=== PATIENT | female | born 1995 | race Caucasian/White ===

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

== ENCOUNTER 2017-03-06 09:02 | Emergency (ER) | payer OTHER ==
[~2017-03-06] VITALS: Ht 157.5 cm; Wt 49.9 kg
[~2017-03-06 09:02] MED LIST changes: -CATHETER FLUSH 10 ML SYR IV PRN; -IOHEXOL 350 MG/ML 100 ML (OMNIPAQUE 350) VIAL IV ONE; -NS 100 ML (IVPB) BAG IV ONE
[2017-03-06] MEDS ORDERED: LACTATED RINGERS 1,000 ML IV ONE (09:26)
[2017-03-06] MEDS ORDERED: ONDANSETRON 4 MG/2 ML (SDV) Z0FRAN IVP ONE (09:30)
--- NOTE | 2017-03-06 09:34 | ED Back Pain ---
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 Source of Information: Patient History of Present Illness Time Seen by Provider: 09:18 Initial Comments C/O LEFT FLANK PAIN SINCE 0800 THIS AM NO RADIATION OF PAIN NOTHING WORSENS OR IMPROVES PAIN PAIN IS CONSTANT BUT WAXES AND WANES IN INTENSITY C/O NAUSEA AND DRY HEAVES DUE TO PAIN NO FEVER NO URINARY SYMPTOMS--VOIDED THIS AM WITHOUT DIFFICULTY NO INJURY TO BACK NO HISTORY OF SIMILAR TOOK TYLENOL JUST PRIOR TO ARRIVAL--"NO RELIEF" PT STATES SHE HAS HISTORY OF FREQUENT UTI'S, AND STATES KIDNEY STONES WERE NOTED ON CT SCAN DURING EVALUATION OF ANOTHER PROBLEM, BUT HAS NEVER PASSED ONE SEES DR. COLLADO--STATES HIS OFFICE TOLD HER TO COME HERE Other Comments PCP: DR. DELVALLE UROLOGY: DR. COLLADO Allergies and Home Medications Allergies Uncoded Allergies: CYCLINES (Allergy, Unknown, 05/23/14) Home Medications Amoxicillin 250 Mg/5 Ml Susp.recon, 1 TSP PO BID for 7 Days 250ML PER 5CC Prescribed by: ABDULKADIR ROSENBAUM on 05/27/14 1224 Dexamethasone 1 Mg/1 Ml Ashley, 2 TSP PO DAILY PRN for PAIN for 4 Days, Ref 0 Mix 4MG/2.5CC water Prescribed by: ABDULKADIR ROSENBAUM on 05/27/14 1231 Hydrocodone/Acetaminophen 473 Ml Solution, 1-2 TSP PO Q4H, #1 Prescribed by: ABDULKADIR ROSENBAUM on 05/27/14 1233 Sulfamethoxazole/Trimethoprim 1 Each Tablet, 1 TAB PO DAILY, (Reported) Tetracaine Sucker Ea, 1 EA MT UD PRN for PAIN, #15 Tetracain Suckers These suckers are custom made and require a prescription. Moisten the sucker first and then suck on it gently as far back in the mouth as possible for 2-3 days. You can repeadt it in about an hour. This will take the edge off but not completely numb the throat. Prescribed by: ABDULKADIR ROSENBAUM on 05/27/14 1224 Constitutional: no symptoms reported Respiratory: no symptoms reported Cardiovascular: no symptoms reported Gastrointestinal: see HPI, No abdominal pain, nausea, vomiting (DRY HEAVES) Genitourinary: No decreased output, No dysuria, No frequency, No hematuria, No hesitancy, No incontinence, No nocturia, No pain : No LMP: Feb 14, 2017 Control/STD Prophylaxis: BC Pills Musculoskeletal: see HPI, back pain (LEFT FLANK) Skin: no symptoms reported, No rash Psychiatric/Neurological: No Symptoms Reported Past Ejtgtsp-Xpzcvw-Vgyhob Hx Patient Social History Alcohol Use: Denies Use Recreational Drug Use: No Smoking Status: Never a Smoker Recent Foreign Travel: No Contact w/Someone Who Travel: No Recent Infectious Disease Expo: No Surgeries History of Surgeries: Yes (WHIPPLE PROCEDURE. 07/2016 AT ) Surgeries: Abdominal, Pancreatic, Tonsillectomy Respiratory History of Respiratory Disorde: No Cardiovascular History of Cardiac Disorders: No Neurological History of Neurological Disord: No Reproductive System : No Last Menstrual Period: Feb 14, 2017 Female Reproductive Disorders: Denies Genitourinary History of Genitourinary Disor: Yes (KIDNEY STONES FOUND INCIDENTALLY ON CT-- NEVER PASSED ONE) Genitourinary Disorders: Kidney Stones, UTI-Chronic Gastrointestinal History of Gastrointestinal Di: Yes (PANCREATIC TUMOR--PT STATES [facility] TOLD HER IT WAS "CANCER" BUT NEVER SEEN BY/ REFERRED TO ONCOLOGIST ) Gastrointestinal Disorders: Pancreatitis Musculoskeletal History of Musculoskeletal Dis: No Endocrine History of Endocrine Disorders: No HEENT History of HEENT Disorders: No Cancer History of Cancer: No (PT CLAIMS [facility] TOLD HER 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 DOES NOT APPEAR TO BE IN ANY DISCOMFORT AT THIS TIME) HEENT: PERRL/EOMI Cardiovascular: Regular Rate, Rhythm, No Edema, No JVD, No Murmur Respiratory: Normal Breath Sounds, No Accessory Muscle Use, No Respiratory Distress Gastrointestinal: Normal Bowel Sounds, No Organomegaly, No Pulsatile Mass, Non Tender, Soft Back: No CVA Tenderness, No Vertebral Tenderness Extremity: Normal Inspection Neurologic/Psychiatric: Alert, Oriented x3, No Motor/Sensory Deficits, Normal Mood/Affect, stock clerk II-XII Norm as Tested Skin: Normal Color, Warm/Dry, No Rash Progress/Results/Core Measures Results/Orders Lab Results Laboratory Tests Test 03/06/17 09:22 03/06/17 09:30 Range/Units White Blood Count 7.5 4.3-11.0 10^3/uL Red Blood Count 4.56 4.35-5.85 10^6/uL Hemoglobin 12.4 11.5-16.0 G/DL Hematocrit 36 35-52 % Mean Corpuscular Volume 79 L 80-99 FL Mean Corpuscular Hemoglobin 27 25-34 PG Mean Corpuscular Hemoglobin Concent 34 32-36 G/DL Red Cell Distribution Width 12.9 10.0-14.5 % Platelet Count 407 H 130-400 10^3/uL Mean Platelet Volume 9.8 7.4-10.4 FL Neutrophils (%) (Auto) 47 42-75 % Lymphocytes (%) (Auto) 46 H 12-44 % Monocytes (%) (Auto) 6 0-12 % Eosinophils (%) (Auto) 1 0-10 % Basophils (%) (Auto) 0 0-10 % Neutrophils # (Auto) 3.5 1.8-7.8 X 10^3 Lymphocytes # (Auto) 3.4 1.0-4.0 X 10^3 Monocytes # (Auto) 0.5 0.0-1.0 X 10^3 Eosinophils # (Auto) 0.1 0.0-0.3 10^3/uL Basophils # (Auto) 0.0 0.0-0.1 10^3/uL Sodium Level 140 135-145 MMOL/L Potassium Level 4.0 3.6-5.0 MMOL/L Chloride Level 109 H 98-107 MMOL/L Carbon Dioxide Level 21 21-32 MMOL/L Anion Gap 10 5-14 MMOL/L Blood Urea Nitrogen 12 7-18 MG/DL Creatinine 0.76 0.60-1.30 MG/DL Estimat Glomerular Filtration Rate > 60 BUN/Creatinine Ratio 16 Glucose Level 102 70-105 MG/DL Calcium Level 9.1 8.5-10.1 MG/DL Total Bilirubin 0.3 0.1-1.0 MG/DL Aspartate Amino Transf (AST/SGOT) 17 5-34 U/L Alanine Aminotransferase (ALT/SGPT) 15 0-55 U/L Alkaline Phosphatase 64 40-136 U/L Total Protein 6.6 6.4-8.2 GM/DL Albumin 3.9 3.2-4.5 GM/DL Amylase Level 49 25-125 U/L Lipase < 4 L 8-78 U/L Serum Test, Qualitative NEGATIVE NEGATIVE Urine Color YELLOW Urine Clarity VERY CLOUDY H Urine pH 5 5-9 Urine Specific Howard 1.025 H 1.016-1.022 Urine Protein 1+ H NEGATIVE Urine Glucose (UA) NEGATIVE NEGATIVE Urine Ketones NEGATIVE NEGATIVE Urine Nitrite NEGATIVE NEGATIVE Urine Bilirubin NEGATIVE NEGATIVE Urine Urobilinogen NORMAL NORMAL MG/DL Urine Leukocyte Esterase 1+ H NEGATIVE Urine RBC (Auto) 5+ H NEGATIVE Urine RBC 10-25 H /HPF Urine WBC RARE /HPF Urine Squamous Epithelial Cells >50 H /HPF Urine Crystals NONE /LPF Urine Bacteria MODERATE H /HPF Urine Casts NONE /LPF Urine Mucus NEGATIVE /LPF Urine Culture Indicated NO My Orders Orders - RONNIE RUIZ DO Ua Culture If Indicated (03/06/17 09:09) Ct Abd/Pelvis Wo(Kidney Stone) (03/06/17 09:26) Amylase (03/06/17 09:26) Cbc With Automated Diff (03/06/17 09:26) Comprehensive Metabolic Panel (03/06/17 09:26) Lipase (03/06/17 09:26) Abdomen/Kub 1view (03/06/17 09:26) Saline Lock/Iv-Start (03/06/17:26) Hcg,Qualitative Serum (03/06/17 09:26) Lactated Ringers (Lr 1000 Ml Iv Solution (03/06/17 09:26) Ondansetron Injection (Zofran Injectio (03/06/17 09:30) Medications Given in ED Current Medications Medications Dose Ordered Sig/Clement Route Start Time Stop Time Status Last Admin Dose Admin Lactated Ringer's 1,000 ml @ 0 mls/hr Q0M ONCE IV 03/06/17 09:26 03/06/17 09:28 DC 03/06/17 09:38 1,000 MLS/HR Ondansetron HCl 4 mg ONCE ONCE IVP 03/06/17 09:30 03/06/17 09:31 DC 12/21/17 09:38 4 MG Vital Signs/I&O Vital Sign - Last 12Hours 03/06/17 09:06 Temp 98.1 Pulse 91 Resp 18 B/P (MAP) 139/98 O2 Delivery Room Air Diagnostic Imaging Comments KUB--NO ACUTE PROCESS CT ABDOMEN/PELVIS--LIKELY 3 MM LEFT DISTAL URETERAL STONE, WITH MILD TO MODERATE LEFT HYDRONEPHROSIS PER RADIOLOGIST REPORT @ 1110 Reviewed: Reviewed by Me Departure Impression Impression: Primary Impression: Left ureteral calculus Additional Impression: UTI (urinary tract infection) Disposition: HOME, SELF-CARE Condition: Improved Departure-Patient Inst. Referrals: SHI DELVALLE DO (PCP/Family) Primary Care Physician PAM COLLADO MD Patient Instructions: Kidney Stones (DC), Urinary Tract Infection, Adult (DC) Add. Discharge Instructions: LOTS OF CLEAR LIQUIDS STRAIN ALL URINE--RETURN ANY STONES TO DR. COLLADO'S OFFICE FOLLOW UP WITH DR COLLADO NEXT WEEK FOR FURTHER CARE RETURN TO ER IF SYMPTOMS WORSEN All discharge instructions reviewed with patient and/or family. Voiced understanding. Scripts Hydrocodone/Ibuprofen (Hydrocodone-Ibuprofen 7.5-200) 1 Each Tablet 1-2 EACH PO Q4H for Pain, #20 TAB Prov: RONNIE RUIZ DO 03/06/17 Ondansetron (Zofran Odt) 4 Mg Tab.rapdis 4 MG PO Q4H for Nausea/Vomiting, #10 TAB Prov: RONNIE RUIZ DO 03/06/17 Nitrofurantoin Monohyd/M-Cryst (Macrobid 100 mg Capsule) 100 Mg Capsule 100 MG PO BID, #20 CAP Prov: RONNIE RUIZ DO 03/06/17 Tamsulosin HCl (Flomax) 0.4 Mg Cap 0.4 MG PO DAILY, #10 CAP Prov: RONNIE RUIZ DO 03/06/17 RONNIE RUIZ DO Mar 06, 2017 09:34
[2017-03-06 09:47] LABS: BASOPHILS % (AUTO) 0 % (0-10); EOSINOPHILS # (AUTO) 0.1 10^3/uL (0.0-0.3); EOSINOPHILS % (AUTO) 1 % (0-10); LYMPHOCYTES # (AUTO) 3.4 X 10^3 (1.0-4.0); LYMPHOCYTES % (AUTO) 46 % (12-44); MEAN CORPUSCULAR HEMOGLOBIN 27 PG (25-34); MEAN CORPUSCULAR HGB CONC 34 G/DL (32-36); MEAN CORPUSCULAR VOLUME 79 FL (80-99); MEAN PLATELET VOLUME 9.8 FL (7.4-10.4); MONOCYTES # (AUTO) 0.5 X 10^3 (0.0-1.0); MONOCYTES % (AUTO) 6 % (0-12); NEUTROPHILS # (AUTO) 3.5 X 10^3 (1.8-7.8); NEUTROPHILS % (AUTO) 47 % (42-75); PLATELET COUNT 407 10^3/uL (130-400); RED BLOOD COUNT 4.56 10^6/uL (4.35-5.85); RED CELL DISTRIBUTION WIDTH 12.9 % (10.0-14.5); WHITE BLOOD COUNT 7.5 10^3/uL (4.3-11.0)
[2017-03-06 09:48] LABS: BILIRUBIN,URINE NEGATIVE (NEGATIVE); KETONES,URINE NEGATIVE (NEGATIVE); LEUKOCYTE ESTERASE ,URINE 1+ (NEGATIVE); NITRITE,URINE NEGATIVE (NEGATIVE); PH,URINE 5 (5-9); PROTEIN,URINE 1+ (NEGATIVE); UROBILINOGEN,URINE NORMAL (NORMAL)
[2017-03-06 09:55] LABS: SQUAMOUS EPITHELIAL CELL,UR >50 /HPF; WBC,URINE RARE /HPF
[2017-03-06 10:02] LABS: ALANINE AMINOTRANSFERASE 15 U/L (0-55); ALBUMIN 3.9 GM/DL (3.2-4.5); AMYLASE 49 U/L (25-125); ANION GAP 10 MMOL/L (5-14); ASPARTATE AMINO TRANSFERASE 17 U/L (5-34); BILIRUBIN,TOTAL 0.3 MG/DL (0.1-1.0); BLOOD UREA NITROGEN 12 MG/DL (7-18); BUN/CREATININE RATIO 16; CALCIUM 9.1 MG/DL (8.5-10.1); CARBON DIOXIDE 21 MMOL/L (21-32); CHLORIDE 109 MMOL/L (98-107); CREATININE SERUM 0.76 MG/DL (0.60-1.30); GFR ESTIMATED > 60; GLUCOSE 102 MG/DL (70-105); LIPASE < 4 U/L (8-78); SODIUM 140 MMOL/L (135-145); TOTAL PROTEIN 6.6 GM/DL (6.4-8.2)
--- NOTE | 2017-03-06 10:27 | Diagnostic Imaging Report ---
INDICATION: Back pain, history of kidney stones. KUB obtained 0954 hours a.m. There is moderate stool throughout the colon. There is no overt obstruction or ileus. There are surgical sutures in the right upper quadrant. There are no definite calculi overlying the renal shadows. There is a left-sided pelvic calcification which may be a phlebolith or small stone. IMPRESSION: Moderate stool throughout the colon. No overt obstruction or ileus. Surgical sutures in the right upper quadrant. There is a left-sided pelvic calcifications may be phleboliths or small stone. Dictated by: Dictated on workstation # [id number]
--- NOTE | 2017-03-06 10:56 | Diagnostic Imaging Report ---
PROCEDURE: CT urinary tract, rule out kidney stone. TECHNIQUE: Multiple contiguous axial images were obtained through the abdomen and pelvis without the use of intravenous contrast. INDICATION: Abdominal pain. Vomiting. FINDINGS: The lung bases are clear. The liver is slightly prominent in size. The spleen appears unremarkable. Surgical clips around the pancreas from prior pancreatic head mass resection are noted. The adrenal glands appear unremarkable. The kidneys demonstrate hydronephrosis of mild to moderate degree on the left side and no hydronephrosis on the right side. There is a calcification in the left side of the pelvis measuring 3 mm. It is in the expected area of the distal left ureter although the distal left ureter itself is not well delineated on this exam. This is probably a distal ureteric stone. No right ureteric stone is seen. No bladder stone. The distal left ureteric stone is about 1 cm from the bladder. The uterus and adnexa appear grossly unremarkable. There is no bowel obstruction. Although the appendix is not fully delineated, it appears to project on the right side of the pelvis with no definite abnormality. The osseous structures appear grossly unremarkable. IMPRESSION: A 3 mm left pelvic stone is seen in the expected area of the distal left ureter, with mild to moderate left renal hydronephrosis suggestive of a distal left ureteric stone. Dictated by: Dictated on workstation # [id number]
--- OUTSIDE RECORDS SUMMARY | 2017-03-06 10:56 | XMS REPORT | Clinical Summary ---
Author Author [facility] Organization [facility] Address Unknown Phone Unavailable Care Team Providers Care 411 Directory Assistance Operator Name Role Phone PCP Unavailable Source Comments Some departments are not documenting in the electronic medical record. If you do not see the information that you expected, contact Release of Information in the Health Information Management department at [phone] for further assistance in locating additional records.[facility] Allergies Active Allergy Reactions Severity Noted Date Comments Unclassified Drug HIVES Medium 11/29/2016 Metacycline Tetracycline HIVES Medium 07/04/2016 Current Medications Prescription Sig. Disp. Refills Start End Date Status Date norgestimate/ethinyl Take 1 Tab by mouth at 84 Tab 3 07/27/19 Active estradiol(+) (ORTHO bedtime daily. Do not 17 TRI-CYCLEN; TRI-SPRINTEC) resume until instructed .18/.215/.25-35 mg-mcg to do so by Dr. March (28) tablet polyethylene glycol 3350 Take 1 Packet by mouth 12 Each 07/27/19 Active (MIRALAX) 17 g packet daily. 17 senna/docusate Take 2 Tabs by mouth 0 07/27/19 Active (SENOKOT-S) 8.6/50 mg twice daily. 17 tablet acetaminophen (TYLENOL) Take 2 Tabs by mouth 0 07/27/19 Active 325 mg tablet every 6 hours as needed. 17 oxyCODONE (ROXICODONE, Take 1-2 Tabs by mouth 60 Tab 0 07/27/19 Active OXY-IR) 5 mg tablet every 4 hours as needed 17 Earliest Fill Date: 07/26/16 AZITHROMYCIN PO Take by mouth. Active trimethoprim (TRIMPEX) Take 100 mg by mouth. Active 100 mg tablet pseudoephedrine Take 60 mg by mouth every Active (SUDOGEST) 60 mg tablet 4 hours as needed for Congestion. Active Problems Problem Noted Date Pancreatic mass 07/23/2016 S/P exploratory laparotomy 07/23/2016 Family History Medical History Relation Name Comments Hypertension Father Thyroid Disease Mother Relation Name Status Comments Father Alive Mother Alive Social History Tobacco Use Types Packs/Day Years Used Date Never Smoker Smokeless Tobacco: Never Used Alcohol Use Drinks/Week oz/Week Comments No 0 Standard 0.0 drinks or equivalent Sex Assigned at Date Recorded Not on file Last Filed Vital Signs Vital Sign Reading Time Taken Blood Pressure 148/84 11/29/2016 1:15 PM CDT Pulse 98 11/29/2016 1:15 PM CDT Temperature 37.1 C (98.7 F) 11/29/2016 1:15 PM CDT Respiratory Rate 18 11/29/2016 1:15 PM CDT Oxygen Saturation 99% 08/14/2016 10:28 AM CDT Inhaled Oxygen - - Concentration Weight 47.6 kg (105 lb) 11/29/2016 1:15 PM CDT Height 157.5 cm (5' 2") 11/29/2016 1:15 PM CDT Body Mass Index 19.2 11/29/2016 1:15 PM CDT Plan of Treatment Health Maintenance Due Date Last Done Comments PHYSICAL (COMPREHENSIVE) 2004 EXAM HPV VACCINES (1 of 3 - 2008 Female 3 Dose Series) PERTUSSIS VACCINE 2008 TETANUS VACCINE 2014 INFLUENZA VACCINE 10/15/2016 Implants Implanted Type Area Practice Architect Device Expiration Model / Identifier Date Serial / Lot 5 Fr Feeding Tube N/A: Bile 07/15/2020 [id number] / Implanted: Qty: 1 on 07/23/2016 by Duct ONIEL / Pop March MD [id number] Results Not on filefrom Last 3 Months
--- OUTSIDE RECORDS SUMMARY | 2017-03-06 10:56 | XMS REPORT | Continuity of Care Document ---
Author Author [employer] Organization [facility] Address Unknown Phone Unavailable Care Team Providers Care Radio Commentator Name Role Phone [employer] Unavailable Unavailable Problems Medications Allergies, Adverse Reactions, Alerts Immunizations Results Vital Signs Encounters Procedures Plan of Care Social History Assessment and Plan Family History Value Date Source Advance Directives Order Name Results Value Date Source
[2017-03-06] MEDS ORDERED: KETOROLAC 30 MG/ML VIAL IVP ONE (11:15)
[2017-03-06] MEDS ORDERED: ALFUZOSIN HCL 10 MG TAB (UROXATRAL) PO SCH (11:15)
[2017-03-06] MEDS ORDERED: HYDR-87 PO (11:16)
[2017-03-06] MEDS ORDERED: TAMS0.4C98 PO (11:16)
[2017-03-06] MEDS ORDERED: ONDA4TAB8 PO (11:16)
[2017-03-06] MEDS ORDERED: NITR-65 PO (11:16)
== END 2017-03-06 11:44 | disposition home or self-care (01) ==
LOC: EDUNIT# 09:02 → ER 09:04
DX: N20.1 Calculus of ureter (principal); N39.0 Urinary tract infection, site not specified; Z90.89 Acquired absence of other organs; Z87.442 Personal history of urinary calculi; Z87.19 Personal history of other diseases of the digestive system
CPT/HCPCS: 36415; 74000; 74176; 80053; 81000; 82150; 83690; 84703; 85025

== ENCOUNTER → 2017-03-25 | Outpatient (CLI) | payer OTHER ==
[~2017-03-25] MED LIST changes: +HYDR-87 PO; +NITR-65 PO; +ONDA4TAB8 PO; +TAMS0.4C98 PO
--- NOTE | 2017-03-25 12:31 | Diagnostic Imaging Report ---
INDICATION: Left nephrolithiasis. EXAMINATION: KUB at 12:36 p.m. FINDINGS: Bowel gas pattern is normal. There are no pathologic masses or calcifications seen. There is a suture line in the right upper quadrant from previous surgery. IMPRESSION: No acute abnormalities in the abdomen. Dictated by: Dictated on workstation # [id number]
== END ==
LOC: RAD 12:04
PROVIDERS: ATTEND Urology
DX: N20.0 Calculus of kidney (principal); N20.1 Calculus of ureter
CPT/HCPCS: 74018

== ENCOUNTER → 2017-03-31 | Outpatient (CLI) | payer OTHER ==
[~2017-03-31] MED LIST changes: +HYDR-3874 PO; +PHEN-640 PO
== END ==
LOC: PREOP 03-28 05:35
PROVIDERS: ATTEND Urology
DX: Z01.818 Encounter for other preprocedural examination (principal); N20.1 Calculus of ureter

== ENCOUNTER 2017-04-01 07:03 | Day surgery (SDC) | payer OTHER ==
[~2017-04-01] VITALS: Ht 157.5 cm; Wt 49.0 kg
[~2017-04-01 07:03] MED LIST changes: -HYDR-3874 PO; -PHEN-640 PO
--- NOTE | 2017-04-01 07:06 | Progress Note-Pre Operative ---
Pre-Operative Progress Note H&P Reviewed The H&P was reviewed, patient examined and no changes noted. Date Seen by Provider: Apr 01, 2017 Time Seen by Provider: 07:06 Date H&P Reviewed: Apr 01, 2017 Time H&P Reviewed: 07:06 Pre-Operative Diagnosis: LT URETERAL STONE PAM COLLADO MD Apr 01, 2017 7:06 am
--- NOTE | 2017-04-01 07:12 | Progress Note-Post Operative ---
Post-Operative Progess Note Surgeon (s)/[employer] (s) Surgeon PAM COLLADO MD [employer]: N/A Pre-Operative Diagnosis LT URETERAL STONE Post-Operative Diagnosis SAME Procedure & Operative Findings Date of Procedure 04/01/17 Procedure Performed/Findings LT URETEROSCOPY WITH STONE BASKET Anesthesia Type GENERAL Estimated Blood Loss Estimated blood loss (mL): N/A Specimens/Packing Specimens Removed STONE Packing: N/A PAM COLLADO MD Apr 01, 2017 7:12 am
[2017-04-01 07:20] VITALS: BP 141/99
[2017-04-01] MEDS ORDERED: cefTRIAXone 1 GM/NS 50 ML IVPB IV ONE ×2 (07:45)
--- NOTE | 2017-04-01 07:52 | Diagnostic Imaging Report ---
INDICATION: Left ureteral stone Supine image of the abdomen is obtained. Comparison is made to study of 03/25/2017. Surgical suture is again seen in the right upper quadrant of the abdomen with midline mamadou. Tiny calcification projecting over the distal left ureter has a similar appearance. No other pathologic abdominal calcification is seen. IMPRESSION: Approximately 0.3 cm calcification is seen in the expected location of distal left ureter. Otherwise, no acute abnormality or adverse change is seen. Dictated by: Dictated on workstation # [id number]
[2017-04-01] MEDS ORDERED: LACTATED RINGERS 1,000 ML IV PRN (09:14)
[2017-04-01] MEDS ORDERED: fentaNYL INJECTION 100 MCG/2 ML AMP ONE (09:51)
[2017-04-01] MEDS ORDERED: MIDAZOLAM 2 MG/2 ML (VERSED) VIAL ONE (09:51)
[2017-04-01] MEDS ORDERED: MEPERIDINE (DEMEROL) INJ 50 MG/ML IVP PRN (11:00)
[2017-04-01] MEDS ORDERED: ONDANSETRON 4 MG/2 ML (SDV) Z0FRAN IVP PRN (11:00)
--- NOTE | 2017-04-01 11:02 | Discharge Inst-Urology ---
Discharge Inst-Urology Discharge Medications New, Converted, or Re-newed RX: RX on Chart Patient Instructions/Follow Up Plan Please make appointment to been seen in office in 2 weeks. Stone for analysis post seen by patient, mother has it Increase oral fluids for 48 hours and then as needed. Diet and Activity as tolerated. If questions or concerns contact your physician Or seek help at emergency department. PAM COLLADO MD Apr 01, 2017 11:02 am
[2017-04-01] MEDS ORDERED: PHEN-640 PO (11:12)
[2017-04-01] MEDS ORDERED: HYDR-3874 PO (11:12)
[2017-04-01] MEDS ORDERED: NITR-65 PO (11:12)
[2017-04-01] MEDS: morphine INJ 10 MG/ML 1ML (SYR OR VIAL) IVP PRN ×2 (11:35→11:40)
[2017-04-01 12:00] VITALS: BP 135/85
[2017-04-01] MEDS ORDERED: PHENAZOPYRIDINE 100 MG (PYRIDIUM) TABLET ONE (12:25)
[2017-04-01 12:30] VITALS: BP 142/88
[2017-04-01] MEDS ORDERED: PHENAZOPYRIDINE 100 MG (PYRIDIUM) TABLET PO ONE (13:00)
--- NOTE | 2017-04-01 13:20 | OPERATIVE REPORT ---
DATE OF SERVICE: 04/01/2017 PREOPERATIVE DIAGNOSIS: Left distal ureteral stone. POSTOPERATIVE DIAGNOSIS: Left distal ureteral stone. OPERATIONS PERFORMED: Cystoscopy, attempted left ureteroscopy, left ureteral stone basket. SURGEON: Pedrito Collado MD ANESTHESIA: General. COMPLICATIONS: None. DESCRIPTION OF PROCEDURE: Under satisfactory general anesthesia, the patient in lithotomy position, genitalia were prepped and draped in the usual sterile fashion. Cystoscope was introduced in the bladder. Examination of the bladder was completely normal except for a sluggish left ureteral efflux. Using the foroblique lens, I dilated the left ureteral orifice intramural portion. I passed a left ureteroscope, but I could not manipulate it beyond the opening, so I removed it and inserted the cystoscope, passed a 3-[place] Pimentel basket beyond the stone, easily grasped the stone and extracted it with no problem. I went ahead and passed a ureteral catheter to confirm the integrity of the ureter and passed easily to the proximal ureter. I elected not to leave a stent to avoid adverse effects of the stent. I emptied the bladder, removed the cystoscope. The patient tolerated the procedure and anesthesia well, was sent to recovery room in stable condition. PLAN: We will send the stone for analysis. We will see her back at the office in 2 weeks. We will do stone workup. Job ID: [id number] DocumentID: [id number] Dictated Date: 04/01/2017 11:06:26 Glove Cuffer Date: 04/01/2017 13:19:12 Dictated By: PEDRITO COLLADO MD
== END 2017-04-01 12:45 | disposition home or self-care (01) ==
LOC: SDC 07:03
PROVIDERS: ATTEND Urology
DX: N20.1 Calculus of ureter (principal)
CPT/HCPCS: 74018; 84703; 87081

== ENCOUNTER → 2017-06-30 | Outpatient (CLI) | payer BC ==
[~2017-06-30] MED LIST changes: +HYDR-3870 PO; +PHEN-640 PO
== END ==
LOC: LAB 17:03
PROVIDERS: ATTEND Urology
DX: N20.1 Calculus of ureter (principal); Z87.442 Personal history of urinary calculi
CPT/HCPCS: 36415; 82140; 82340; 82507; 82570; 83735; 83945; 83986; 84105; 84133; 84300; 84392; 84560

== ENCOUNTER → 2017-10-02 | Outpatient (CLI) | payer BC | LOC: CARD 10:32 | PROVIDERS: ATTEND Family Medicine | DX: I10 Essential (primary) hypertension (principal) | CPT/HCPCS: 93306 ==

== ENCOUNTER → 2018-03-04 | Outpatient (CLI) | payer BC ==
--- NOTE | 2018-03-04 13:38 | Diagnostic Imaging Report ---
INDICATION: History of kidney stones. Followup. History of UTIs. COMPARISON: 04/01/2017. FINDINGS: Single supine radiographic view of the abdomen was obtained. Surgical suture material is noted within the right upper abdominal quadrant. No other unexpected extraosseous calcifications or radiopaque foreign bodies are seen. Small bowel loops are nondistended. There is no large collection of free intraperitoneal air. Bony structures show no gross acute abnormalities. IMPRESSION: 1. Nonobstructive small bowel gas pattern. 2. No unexpected extraosseous calcifications or radiopaque foreign bodies. Dictated by: Dictated on workstation # [id number]
== END ==
LOC: RAD 13:00
PROVIDERS: ATTEND Urology
DX: Z09 Encounter for follow-up examination after completed treatment for conditions other than malignant neoplasm (principal); Z87.442 Personal history of urinary calculi
CPT/HCPCS: 74018

== ENCOUNTER 2020-11-02 19:36 | Emergency (ER) | payer BC ==
[~2020-11-02] VITALS: Ht 157.5 cm; Wt 65.3 kg
[~2020-11-02 19:36] MED LIST changes: -TAMS0.4C98 PO; +TMSL.4C PO
[2020-11-02] MEDS ORDERED: ESCI-2 (20:11)
[2020-11-02] MEDS ORDERED: TR1O15 (20:11)
[2020-11-02] MEDS ORDERED: METO50TA7 (20:11)
[2020-11-02] MEDS ORDERED: LANS30CA (20:11)
[2020-11-02] MEDS ORDERED: ONDANSETRON 4 MG/2 ML (SDV) Z0FRAN IVP ONE (20:30)
[2020-11-02] MEDS ORDERED: LACTATED RINGERS 1,000 ML IV ONE (20:30)
[2020-11-02] MEDS ORDERED: PANTOPRAZOLE 40 MG (PROTONIX) VIAL IV ONE (20:30)
[2020-11-02 20:32] LABS: BILIRUBIN,URINE NEGATIVE (NEGATIVE); CLARITY,URINE CLEAR; COLOR,URINE YELLOW; GLUCOSE, URINE (UA) NEGATIVE (NEGATIVE); KETONES,URINE NEGATIVE (NEGATIVE); LEUKOCYTE ESTERASE ,URINE NEGATIVE (NEGATIVE); NITRITE,URINE NEGATIVE (NEGATIVE); PROTEIN,URINE NEGATIVE (NEGATIVE)
[2020-11-02 20:34] LABS: BASOPHILS % (AUTO) 0 % (0-10); EOSINOPHILS # (AUTO) 0.3 10^3/uL (0.0-0.3); EOSINOPHILS % (AUTO) 2 % (0-10); HEMATOCRIT 39 % (35-52); HEMOGLOBIN 12.6 g/dL (11.5-16.0); LYMPHOCYTES # (AUTO) 3.5 10^3/uL (1.0-4.0); LYMPHOCYTES % (AUTO) 33 % (12-44); MEAN CORPUSCULAR HEMOGLOBIN 27 pg (25-34); MEAN CORPUSCULAR HGB CONC 33 g/dL (32-36); MEAN CORPUSCULAR VOLUME 82 fL (80-99); MEAN PLATELET VOLUME 9.5 fL (9.0-12.2); MONOCYTES # (AUTO) 0.5 10^3/uL (0.0-1.0); MONOCYTES % (AUTO) 5 % (0-12); NEUTROPHILS # (AUTO) 6.3 10^3/uL (1.8-7.8); NEUTROPHILS % (AUTO) 59 % (42-75); PLATELET COUNT 415 10^3/uL (130-400); WHITE BLOOD COUNT 10.6 10^3/uL (4.3-11.0)
--- NOTE | 2020-11-02 20:36 | ED Abdominal Pain ---
General Chief Complaint: Abdominal/GI Problems Stated Complaint: ABDOMINAL PAIN Nursing Triage Note: c/o intermittant upper abdominal pain x1 day. 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 Source of Information: Patient History of Present Illness Date Seen by Provider: Nov 02, 2020 Time Seen by Provider: 20:10 Initial Comments PT ARRIVES VIA POV FROM HOME C/O UPPER ABDOMINAL PAIN SINCE YESTERDAY STATES IT WENT AWAY YESTERDAY, AND SHE WAS FINE ALL DAY TODAY, AND ATE BREAKFAST AND LUNCH WITHOUT PROBLEMS ATE DINNER/SUSHI AROUND 1830 AND PAIN RETURNED ATE BROCCOLI/RICE/CHEESE YESTERDAY PT VOMITED X 5 LAST NIGHT, NO VOMITING TODAY, BUT NAUSEA HAS RETURNED WHEN PAIN RETURNED. TOOK ZOFRAN LAST NIGHT, BUT NONE TODAY HAS NOT TAKEN ANYTHING FOR PAIN HAD BM X 1--DIARRHEA/NORMAL FOR PT. NO FEVER NO URINARY SYMPTOMS NO COUGH OR URI SYMPTOMS PT HAS HAD PANCREATIC CANCER, AND HAD WHIPPLE PROCEDURE DONE IN 2016 AT HAD CHOLECYSTECTOMY, BILE DUCT REMOVED, PARTIAL PANCREATECTOMY, PARTIAL GASTRECTOMY AND SMALL BOWEL RESECTION DONE NO CHEMO OR RADIATION STILL SEES GI AND ONCOLOGY AT HAS ONGOING GI ISSUES SINCE THE ABOVE, BUT DOES NOT TAKE ANY GI MEDICATIONS, AND NORMALLY DOES NOT HAVE PAIN--MOSTLY DIGESTION ISSUES/DIARRHEA HAD NORMAL EGD LAST YEAR, AND HAD COLONOSCOPY 2 YEARS AGO HAD NORMAL MRI OF ABDOMEN IN JULY HAS AN APPOINTMENT 11/07/20 FOR GENETIC COUNSELING HAD SIMILAR PAIN A COUPLE OF MONTHS AGO, CALLED HER DR, BUT NO TESTS WERE DONE, NO RX'S GIVEN CALLED HER DR AT TODAY, AND HE ORDERED LAB TODAY, BUT PT DID NOT HAVE THAT DONE TODAY. LMP: NOW--IUD IN PLACE PT HAD HER SECOND COVID-19 VACCINE 10 DAYS AGO NO KNOWN SICK CONTACTS. PCP: DR. DELVALLE UROLOGY: DR. HEAVEN SHETTY FOR GI AND ONCOLOGY Allergies and Home Medications Allergies Uncoded Allergies: CYCLINES (Allergy, Unknown, 05/23/14) Home Medications Metoclopramide HCl 10 Mg Tablet, 10 MG PO QID Prescribed by: RONNIE RUIZ on 11/02/202156 Ondansetron 8 Mg Tab.rapdis, 8 MG PO Q4H PRN for NAUSEA/VOMITING Prescribed by: RONNIE RUIZ on 11/02/202156 Pantoprazole Sodium 40 Mg Tablet., 40 MG PO DAILY Prescribed by: RONNIE RUIZ on 11/02/202156 Patient Home Medication List Home Medication List Reviewed: Yes Review of Systems Review of Systems Constitutional: no symptoms reported Respiratory: No Symptoms Reported Cardiovascular: No Symptoms Reported Gastrointestinal: See HPI, Abdominal Pain; Denies Constipated; Diarrhea (NORMAL FOR PT), Nausea, Vomiting Genitourinary: No Symptoms Reported Musculoskeletal: no symptoms reported; No back pain Skin: no symptoms reported Psychiatric/Neurological: No Symptoms Reported Endocrine: No Symptoms Reported Hematologic/Lymphatic: No Symptoms Reported Past Zekmtvt-[id number]-Byjonj Hx Patient Social History Tobacco Use?: No Use of E-Cig and/or Vaping dev: No Substance use?: No Alcohol Use?: Yes Alcohol Frequency: Once in a while Pt feels they are or have been: No Immunizations Up To Date First/Initial COVID19 Vaccinat: 10/04 Second COVID19 Vaccination Neal: 11/04 COVID19 Vaccine Knot Cutter: kim Past Medical History Surgery/Hospitalization HX: 2017--WHIPPLE PROCEDURE--WITH CHOLECYSTECTOMY, BILE DUCT REMOVED, PARTIAL GASTRECTOMY, PARTIAL PANCREATECTOMY, SMALL BOWEL RESECTION Surgeries: Yes (WHIPPLE PROCEDURE. 07/2016 AT ) Abdominal, Bowel Surgery, Gallbladder, Pancreatic, Renal, Tonsillectomy Respiratory: No Cardiac: Yes Hypertension Neurological: No Last Menstrual Period: Nov 02, 2020 Female Reproductive Disorders: Denies Genitourinary: Yes (KIDNEY STONES FOUND INCIDENTALLY ON CT--NEVER PASSED ONE) Kidney Stones, UTI-Chronic Gastrointestinal: Yes (PANCREATIC CANCER-S/P WHIPPLE PROCEDURE) Pancreatitis Musculoskeletal: No Endocrine: No HEENT: Yes (S/P TONSILLECTOMY) Tonsilitis Cancer: Yes Pancreatic Did You Recieve Any Treatments: Yes What Type of Treatment Did You: Surgical Intervention S/P WHIPPLE PROCEDURE 2016 Psychosocial: Yes Anxiety Integumentary: No Blood Disorders: No Physical Exam Vital Signs Vital Signs - First Documented 11/02/20 20:03 Temp 36.9 Pulse 86 Resp 16 B/P (MAP) 163/102 (122) Pulse Ox 99 O2 Delivery Room Air Capillary Refill : Less Than 3 Seconds Height/Weight/BMI Height: 5'2.00" Weight: 108lbs. 1.0oz. 49.310209kc; 26.00 BMI Method: General Appearance: WD/WN, no apparent distress, other (WALKS UPRIGHT AND MOVES WITHOUT DIFFICULTY) HEENT: PERRL/EOMI; No scleral icterus (R), No scleral icterus (L) Neck: normal inspection Respiratory: normal breath sounds, no respiratory distress, no accessory muscle use Cardiovascular: regular rate, rhythm Gastrointestinal: normal bowel sounds, soft, no organomegaly; No guarding, No rebound; tenderness (DIFFUSE UPPER ABDOMINAL TENDERNESS, BUT MOST TENDER IN EPIGASTRIC AREA); No hernia, No mass; other (DIFFUSE FULLNESS TO UPPER ABDOMEN) Extremities: normal inspection Back: no CVA tenderness Neurologic/Psychiatric: zinc etcher II-XII nml as tested, no motor/sensory deficits, alert, normal mood/affect, oriented x 3 Skin: normal color, warm/dry; No rash Progress/Results/Core Measures Results/Orders Lab Results Laboratory Tests Test 11/02/20 20:12 11/02/20 20:20 Range/Units Urine Color YELLOW Urine Clarity CLEAR Urine pH 6.0 5-9 Urine Specific Whipple >=1.030 1.016-1.022 Urine Protein NEGATIVE NEGATIVE Urine Glucose (UA) NEGATIVE NEGATIVE Urine Ketones NEGATIVE NEGATIVE Urine Nitrite NEGATIVE NEGATIVE Urine Bilirubin NEGATIVE NEGATIVE Urine Urobilinogen 0.2 < = 1.0 MG/DL Urine Leukocyte Esterase NEGATIVE NEGATIVE Urine RBC (Auto) NEGATIVE NEGATIVE Urine RBC NONE /HPF Urine WBC 0-2 /HPF Urine Crystals PRESENT H /LPF Urine Amorphous Sediment RARE LUMA URATES H /LPF Urine Bacteria TRACE /HPF Urine Casts NONE /LPF Urine Mucus NEGATIVE /LPF Urine Culture Indicated NO White Blood Count 10.6 4.3-11.0 10^3/uL Red Blood Count 4.71 3.80-5.11 10^6/uL Hemoglobin 12.6 11.5-16.0 g/dL Hematocrit 39 35-52 % Mean Corpuscular Volume 82 80-99 fL Mean Corpuscular Hemoglobin 27 25-34 pg Mean Corpuscular Hemoglobin Concent 33 32-36 g/dL Red Cell Distribution Width 13.3 10.0-14.5 % Platelet Count 415 H 130-400 10^3/uL Mean Platelet Volume 9.5 9.0-12.2 fL Immature Granulocyte % (Auto) 1 % Neutrophils (%) (Auto) 59 42-75 % Lymphocytes (%) (Auto) 33 12-44 % Monocytes (%) (Auto) 5 0-12 % Eosinophils (%) (Auto) 2 0-10 % Basophils (%) (Auto) 0 0-10 % Neutrophils # (Auto) 6.3 1.8-7.8 10^3/uL Lymphocytes # (Auto) 3.5 1.0-4.0 10^3/uL Monocytes # (Auto) 0.5 0.0-1.0 10^3/uL Eosinophils # (Auto) 0.3 0.0-0.3 10^3/uL Basophils # (Auto) 0.0 0.0-0.1 10^3/uL Immature Granulocyte # (Auto) 0.1 0.0-0.1 10^3/uL Sodium Level 140 135-145 MMOL/L Potassium Level 3.5 L 3.6-5.0 MMOL/L Chloride Level 107 98-107 MMOL/L Carbon Dioxide Level 23 21-32 MMOL/L Anion Gap 10 5-14 MMOL/L Blood Urea Nitrogen 12 7-18 MG/DL Creatinine 0.74 0.60-1.30 MG/DL Estimat Glomerular Filtration Rate 98 BUN/Creatinine Ratio 16 Glucose Level 83 70-105 MG/DL Calcium Level 9.1 8.5-10.1 MG/DL Corrected Calcium 8.9 8.5-10.1 MG/DL Magnesium Level 2.4 1.6-2.4 MG/DL Total Bilirubin 0.2 0.1-1.0 MG/DL Aspartate Amino Transf (AST/SGOT) 25 5-34 U/L Alanine Aminotransferase (ALT/SGPT) 33 0-55 U/L Alkaline Phosphatase 94 40-136 U/L Total Protein 7.0 6.4-8.2 GM/DL Albumin 4.2 3.2-4.5 GM/DL Amylase Level 56 25-125 U/L Lipase 19 8-78 U/L My Orders Orders - RONNIE RUIZ DO Ed Iv/Invasive Line Start (11/02/20 20:17) Ed Iv/Invasive Line Start (11/02/20 20:17) Lactated Ringers (Lr 1000 Ml Iv Solution (11/02/20 20:30) Amylase (11/02/20 20:17) Cbc With Automated Diff (11/02/20 20:17) Comprehensive Metabolic Panel (11/02/20 20:17) Lipase (11/02/20 20:17) Magnesium (11/02/20 20:17) Ondansetron Injection (Zofran Injectio (11/02/20 20:30) Pantoprazole Injection (Protonix Injecti (11/02/20 20:30) Ct Abdomen/Pelvis W (11/02/20 21:07) Iohexol Injection (Omnipaque 350 Mg/Ml 1 (11/02/20 21:30) Ns (Ivpb) (Sodium Chloride 0.9% Ivpb Bag (11/02/20 21:30) Metoclopramide Tablet (Reglan Tablet) (11/02/20 22:00) Medications Given in ED Vital Signs/I&O 11/02/20 11/02/20 20:03 22:26 Temp 36.9 36.5 Pulse 86 76 Resp 16 16 B/P (MAP) 163/102 (122) 128/80 (122) Pulse Ox 99 100 O2 Delivery Room Air Room Air Blood Pressure Mean: 122 Progress Progress Note : Progress Note GIVEN IV FLUIDS, ZOFRAN AND PROTONIX WITH IMPROVEMENT IN SYMPTOMS Diagnostic Imaging Comments CT ABDOMEN/PELVIS--PER RADIOLOGIST REPORT AT 2148 Lung bases are clear. Liver appears normal. The gallbladder is surgically absent. There is a large amount of retained gastric residue. Spleen is not enlarged. Patient has had partial pancreatectomy. Kidneys and adrenals appear normal. Aorta and IVC appear normal. There is an IUD in the uterus. Adnexa are unremarkable. Urinary bladder is normal. There is no intraperitoneal free air or free fluid. IMPRESSION: Retained food residue in the stomach. No acute abnormality is seen. Reviewed: Reviewed by Me Departure Impression Primary Impression: Upper abdominal pain Additional Impression: Gastric distention Disposition: HOME, SELF-CARE Condition: Stable Departure-Patient Inst. Decision time for Depature: 21:50 Referrals: SHI DELVALLE DO (PCP/Family) Primary Care Physician Patient Instructions: Abdominal Pain, Adult ED, Gastric Outlet Obstruction, Adult, Gastroparesis (Delayed Gastric Emptying) (DC) Add. Discharge Instructions: CLEAR LIQUIDS--WATER, BROTH, JELLO, GATORADE NO FOOD UNTIL YOUR STOMACH IS BETTER WHEN YOU ARE FEELING BETTER, EAT SMALLER MEALS, MORE FREQUENTLY FOLLOW UP WITH YOUR GI DR AT NEXT WEEK FOR FURTHER CARE, CALL IN THE MORNING TO SCHEDULE APPOINTMENT RETURN TO ER IF WORSE All discharge instructions reviewed with patient and/or family. Voiced understanding. Scripts Pantoprazole Sodium (Protonix) 40 Mg Tablet.dr 40 MG PO DAILY, #15 TAB Prov: RONNIE RUIZ DO 11/02/20 Ondansetron (Ondansetron Odt) 8 Mg Tab.rapdis 8 MG PO Q4H PRN for NAUSEA/VOMITING, #10 TAB Prov: RONNIE RUIZ DO 11/02/20 Metoclopramide HCl (Reglan) 10 Mg Tablet 10 MG PO QID, #40 TAB Prov: RONNIE RUIZ DO 11/02/20 RONNIE RUIZ DO Nov 02, 2020 20:36
[2020-11-02 20:53] LABS: AMORPHOUS SEDIMENT,UR RARE AMOR URATES /LPF; BACTERIA,URINE TRACE /HPF; WBC,URINE 0-2 /HPF
[2020-11-02 21:00] LABS: ALBUMIN 4.2 GM/DL (3.2-4.5); BILIRUBIN,TOTAL 0.2 MG/DL (0.1-1.0); CALCIUM 9.1 MG/DL (8.5-10.1); CREATININE SERUM 0.74 MG/DL (0.60-1.30); MAGNESIUM 2.4 MG/DL (1.6-2.4); POTASSIUM 3.5 MMOL/L (3.6-5.0)
[2020-11-02] MEDS ORDERED: IOHEXOL 350 MG/ML 100 ML (OMNIPAQUE 350) VIAL IV ONE (21:30)
[2020-11-02] MEDS ORDERED: NS 100 ML (IVPB) BAG IV ONE (21:30)
--- NOTE | 2020-11-02 21:45 | Diagnostic Imaging Report ---
PROCEDURE: CT abdomen and pelvis with contrast. TECHNIQUE: Multiple contiguous axial images were obtained through the abdomen and pelvis after administration of intravenous contrast. Auto Exposure Controls were utilized during the CT exam to meet ALARA standards for radiation dose reduction. All CT scans use one or more of the following dose optimizing techniques: automated exposure control, MA and/or KvP adjustment based on patient size and exam type or iterative reconstruction. INDICATION: Upper abdominal pain. Lung bases are clear. Liver appears normal. The gallbladder is surgically absent. There is a large amount of retained gastric residue. Spleen is not enlarged. Patient has had partial pancreatectomy. Kidneys and adrenals appear normal. Aorta and IVC appear normal. There is an IUD in the uterus. Adnexa are unremarkable. Urinary bladder is normal. There is no intraperitoneal free air or free fluid. IMPRESSION: Retained food residue in the stomach. No acute abnormality is seen. Dictated by: Dictated on workstation # [id number]
[2020-11-02] MEDS ORDERED: METO-310 PO (21:57)
[2020-11-02] MEDS ORDERED: ONDA8TAB13 PO (21:57)
[2020-11-02] MEDS ORDERED: PANT40TA2 PO (21:57)
[2020-11-02] MEDS ORDERED: METOCLOPRAMIDE 10 MG (REGLAN) TAB PO ONE (22:00)
[2020-11-02 22:26] VITALS: BP 128/80
== END 2020-11-02 22:26 | disposition home or self-care (01) ==
LOC: EDUNIT# 19:36 → ER 19:38
DX: K31.89 Other diseases of stomach and duodenum (principal); I10 Essential (primary) hypertension; Z90.410 Acquired total absence of pancreas; Z90.49 Acquired absence of other specified parts of digestive tract
CPT/HCPCS: 36415; 74177; 80053; 81000; 82150; 83690; 83735; 84703; 85025